=== PATIENT | male | born 1945 | race Hispanic/Latino ===

== ENCOUNTER 2023-02-02 05:59 | Day surgery (SDC) | payer BC ==
--- NOTE | 2023-02-01 15:21 | RAD REPORT ---
EXAM DESCRIPTION: RAD - Chest Pa And Lat (2 Views) - 02/01/2023 3:08 pm CLINICAL HISTORY: pre op for surgery Chest pain. COMPARISON: No comparisons TECHNIQUE: PA and lateral views of the chest were obtained. FINDINGS: The lungs are hyperexpanded compatible with COPD. The heart is upper limit of normal in si ze. No fracture or aggressive bony process. IMPRESSION: COPD without acute process identified.
[2023-02-01 15:28] LABS: Absolute Lymphocytes (CBC) 1.5 K/uL (0.7-4.9); Hematocrit 41.4 % (39.6-49.0); Lymphocytes % 22.9 % (15.3-44.8); MCV 92.9 fL (80-100); MPV 7.4 fL (7.6-11.3); RBC Red Blood Cell Count 4.46 M/uL (4.33-5.43)
[2023-02-01 15:46] LABS: Potassium 4.1 mmol/L (3.5-5.1)
[2023-02-02] MEDS ORDERED: ACETAMINOPHEN 500 MG TAB ONE (06:38)
[2023-02-02] MEDS ORDERED: CELECOXIB 100 MG CAPSULE ONE (06:38)
[2023-02-02] MEDS ORDERED: propofoL 200 MG/20 ML VIAL IV ONE (07:15)
[2023-02-02] MEDS ORDERED: FENTANYL CITR 100 MCG/2 ML ONE (07:15)
[2023-02-02] MEDS ORDERED: ROCURONIUM 50 MG/5 ML VIAL IV ONE (07:16)
[2023-02-02] MEDS ORDERED: MIDAZOLAM HCL 2 MG/2 ML INJ ONE (07:16)
[2023-02-02] MEDS ORDERED: LIDOCAINE 2% MPF 5 ML VIAL ONE (07:16)
[2023-02-02] MEDS ORDERED: ONDANSETRON 4 MG/2 ML VIAL ONE ×2 (07:17→08:44)
[2023-02-02] MEDS ORDERED: dexAMETHasone 4 MG/ML VIAL ONE (08:44)
--- NOTE | 2023-02-02 09:00 | P.BOP ---
Preoperative diagnosis: Left Large incarcerated with sigmoid colon inguinal hernia, bilateral hydro Postoperative diagnosis: same Primary procedure: Open repair of incarcerated left inguinal hernia with mesh Estimated blood loss: <10cc Specimen: none Findings: see dicta Anesthesia: General Complications: None Implants: large mesh plug and sheet Transferred to: Recovery Room Condition: Good
[2023-02-02] MEDS ORDERED: HYDROCODONE/APAP 5/325 MG TAB PO PRN (09:27)
[2023-02-02] MEDS ORDERED: TAMSULOSIN 0.4 MG SR CAP PO ONE (09:28)
[2023-02-02] MEDS ORDERED: TAMSULOSIN 0.4 MG SR CAP ONE (10:27)
[2023-02-02] MEDS ORDERED: HYDROCODONE/APAP 5/325 MG TAB ONE (10:27)
[2023-02-02 10:57] VITALS: BP 129/81; TEMP 96.6; O2SAT 98
--- NOTE | 2023-02-02 13:04 | EKG ---
Test Date: 2023-02-01 Test Time: 14:44:04 Laceworker: DOV MEASUREMENT RESULTS: Intervals: Rate: 62 PA: 178 QRSD: 78 QT: 408 QTc: 414 [place]: P: 58 PA: 178 QRS: 63 T: 53 INTERPRETIVE STATEMENTS: Sinus rhythm with premature atrial complexes Otherwise normal ECG No previous ECG available for comparison Electronically Signed On 02-02-23 13:03:09 TRANSITIONS MANAGER RN by Matthias Kamara
--- NOTE | 2023-02-02 13:47 | OP ---
Date of Procedure: 02/02/2023 Surgeon: Jamal Simms MD Preoperative Diagnosis: Left large incarcerated with sigmoid colon inguinal hernia. Postoperative Diagnosis: Left large incarcerated with sigmoid colon inguinal hernia. Procedure: Open repair of incarcerated left inguinal hernia with mesh. Estimated Blood Loss: Less than 10 mL. Anesthesia: General plus local. Implant: Large mesh plug and sheath. Indication: This is the case of a 77-year-old patient, sent to us by urologist because the patient h as a few problems. The patient has bilateral hydroceles, large. Also, the patient has bilateral ing uinal hernias. The right side is not getting any trouble, but the left side is giving pain and happe ana to have sigmoid colon incarcerated on it, so I was asked to fix that first. The urologist will e ventually fix the hydrocele, so he understands we are going only for the left inguinal hernia as per request with open repair due to size and content. I explained to him with possible mesh use. Also e xplained to him with benefits, alternatives, and risks including, but not limited to infection, bleed ing, damage to adjacent structures, anesthesia complication, recurrence, chronic pain, chronic numbne ss, PR, and even . He also understands this may not relieve any symptoms. He might need more t huggins one surgical intervention. He understood, signed a consent. Procedure In Detail: The patient was brought to the operating room, placed in supine position. Anes thesia was done without complication. The inguinal and abdomen were prepped and draped in the usual sterile fashion and we prepped like this since there is an incarceration of the sigmoid that may requ logan some intervention. An incision was made in the left inguinal region after time-out after injecti ng local anesthetic. The incision was carried down to Margo fascia, which was opened under direct v ision. Then, after that, we found the external oblique aponeurosis that was opened in direction of t he fibers to connect to the superficial inguinal ring. The ilioinguinal nerve and iliohypogastric ne rve were identified, protected behind the external oblique aponeurosis. We noticed the patient to cabrera ve a direct hernia. The bowel looks viable, was easily reduced. The hernia sac was imbricated with the help of Prolene. Then, after that, on that defect, we placed a mesh plug and secured that in thaddeus ce with ailyn. The spermatic cord was protected at all time including the vas deferens. The floor of the canal was repaired with 2-0 Prolene once again making sure the spermatic cord structures are intact. Then, after that, I placed a mesh sheet in the floor of the canal securing that to the pubic tubercle, shelving edge of inguinal ligament, and transversalis fascia and the tails of this looped around the spermatic cord without strangulation. After that, I brought the ilioinguinal nerve and il iohypogastric nerve back into the inguinal canal, reconstructed the superficial inguinal ring and harvey sed the external oblique aponeurosis. The area was irrigated. Then, we closed the Margo fascia and then the skin. Before that, I have to mention the patient has large hydroceles. They are not exten ding into the inguinal region, they are down in the scrotum and the urologist may have to repair that the way he knows to. The skin was approximated with ailyn. Sponge count, instrument counts corre ct. The patient was sent to recovery room in stable condition. At the end of the case, testicles ar e within the scrotum. MAULIK/BECCA Voice ID: [id number] Report ID: [id number]
--- NOTE | 2023-02-02 13:53 | DS ---
Date of Discharge: 02/02/2023 Diagnosis: Left large incarcerated inguinal hernia. Procedure: Open repair of incarcerated left inguinal hernia with mesh. Disposition: Home. Activity: As tolerated. No lifting. Plan: Follow up in my office in 1 week. Call for appointment at [phone]. Cold compress to the lef t inguinal region. Once again, follow with the urologist. MAULIK/BECCA Voice ID: [id number] Report ID: [id number]
== END 2023-02-02 10:47 | disposition home or self-care (01) ==
LOC: OR 05:59
PROVIDERS: ATTEND Surgery
PROC: 0YU60JZ Supplement Left Inguinal Region with Synthetic Substitute, Open Approach (ICD-10-PCS; principal; 2023-02-02 07:30)
DX: K40.30 Unilateral inguinal hernia, with obstruction, without gangrene, not specified as recurrent (principal)
CPT/HCPCS: 36415; 71046; 80048; 82947; 85025; 93005; J1100; J2001; J2250; J2405; J2704; J3010